=== PATIENT | male | born 1985 | race Caucasian/White ===

== ENCOUNTER 2016-11-05 17:41 | Emergency (ER) | payer SELFPAY ==
[~2016-11-05] VITALS: Ht 165.1 cm; Wt 64.0 kg
[2016-11-05 17:47] VITALS: BP 130/79
--- NOTE | 2016-11-05 17:55 | NUR ---
Patient ambulated to bed 4. RN evaluating patient at bedside.
--- NOTE | 2016-11-05 18:07 | NUR ---
Dr. Sims evaluating patient at bedside.
--- NOTE | 2016-11-05 18:08 | NUR ---
31/M TO ED WITH C/O PENILE PAIN X3 DAYS. PT STATES HE HAS BEEN HAVING WHITE DISCHARGE AND HAVING UNPROTECTED SEX. PT STATES HE IS HAVING TROUBLE URINATING. PAIN 4/10. LUNGS CLEAR BILAT. HR EVEN AND REGULAR. AAOX4. VSS. NO SIGNS OF DISTRESS.
[2016-11-05] MEDS ORDERED: cefTRIAXone 1,000 MG in LIDOCAINE 1% ED 2.1 ML IM ONE (18:10)
[2016-11-05 18:28] VITALS: BP 130/79
--- NOTE | 2016-11-05 18:29 | NUR ---
Patient discharged with v/s stable. Written and verbal after care instructions given and explained. Patient alert, oriented and verbalized understanding of instructions. Ambulatory with steady gait. All questions addressed prior to discharge. ID band removed. Patient advised to follow up with PMD. Rx of DOXYCYCLINE AND TRAMADOL given. Patient educated on indication of medication including possible reaction and side effects. Opportunity to ask questions provided and answered.
== END 2016-11-05 18:29 | disposition home or self-care (01) ==
LOC: MED 17:41
DX: N34.2 Other urethritis (principal); R03.0 Elevated blood-pressure reading, without diagnosis of hypertension
CPT/HCPCS: 96372; 99283; J0696; J2001

== ENCOUNTER 2018-09-07 21:56 | Emergency (ER) | payer SELFPAY ==
[~2018-09-07] VITALS: Ht 165.1 cm; Wt 65.8 kg
--- NOTE | 2018-09-07 22:07 | NUR ---
CALLED FOR TRIAGE, NO RESPONSE AT THIS TIME
--- NOTE | 2018-09-07 22:20 | NUR ---
CALLED 2ND TIME FOR TRIAGE, NO ANSWER.
[2018-09-07 22:34] VITALS: BP 141/60
--- NOTE | 2018-09-07 22:34 | NUR ---
TO LOBBY AWAITING BED, VSS.
[2018-09-07 23:36] LABS: APPEARANCE,URINE HAZY (CLEAR); BILIRUBIN,URINE NEGATIVE (NEGATIVE); BLOOD, URINE NEGATIVE (NEGATIVE); COLOR,URINE YELLOW (YELLOW); LEUKOCYTE ESTERASE ,URINE TRACE (NEGATIVE); NITRITE, URINE NEGATIVE (NEGATIVE); PH,URINE 6.5 (5.0-9.0); UGLUCOSE NEGATIVE (NEGATIVE)
[2018-09-08 00:03] LABS: RBC,URINE 0-5 (RARE) /HPF (0-5); WBC,URINE 20-60 /HPF (0-5)
[2018-09-08 00:04] LABS: URINE AMORPHOUS URATE 1+ /HPF (None Seen)
--- NOTE | 2018-09-08 00:36 | NUR ---
TO ER BED 1
--- NOTE | 2018-09-08 01:00 | NUR ---
PT C/O DYSURIA AND PENILE EDEMA X 3 DAYS. ON EXAM +ERYTHEMA AND EDEMA TO HEAD OF PENIS. 05/01 PAIN. DENIES CP/SOB/ N/V/D AT THIS TIME.
[2018-09-08] MEDS ORDERED: AZITHROMYCIN 250 MG TAB PO ONE (01:05)
[2018-09-08] MEDS ORDERED: cefTRIAXone 1,000 MG in LIDOCAINE MPF 1% - 5 mL VIAL 2.1 ML IM ONE (01:05)
[2018-09-08] MEDS ORDERED: cefTRIAXone 1,000 MG VIAL ONE (01:18)
[2018-09-08 01:27] VITALS: BP 140/72
--- NOTE | 2018-09-08 01:27 | NUR ---
Patient discharged with v/s stable. Written and verbal after care instructions given and explained. Patient alert, oriented and verbalized understanding of instructions. Ambulatory with steady gait. All questions addressed prior to discharge. ID band removed. Patient advised to follow up with PMD. Rx of BACITRACIN AND DOXYCYCLINE given. Patient educated on indication of medication including possible reaction and side effects. Opportunity to ask questions provided and answered.
== END 2018-09-08 01:27 | disposition home or self-care (01) ==
LOC: MED 21:56
DX: N48.89 Other specified disorders of penis (principal)
CPT/HCPCS: 81001; 87086; 96372; 99283; J0696